=== PATIENT | male | born 1955 | race Caucasian/White ===

== ENCOUNTER 2018-12-06 12:16 | Inpatient (IN) | payer MEDICARE ==
[2018-12-06] MEDS ORDERED: NS 0.9% 1000 ML** 1,000 ML IV ONE (12:29)
[2018-12-06] MEDS ORDERED: Metoprolol Tartrate IV* 1 MG/ML 5 ML VIAL IV ONE (12:30)
[2018-12-06] MEDS ORDERED: Alteplase* 100 MG VIAL ONE (12:42)
[2018-12-06] MEDS ORDERED: Alteplase* 100 MG VIAL IV ONE ×2 (12:44)
[2018-12-06] MEDS ORDERED: niCARdipine 0.1MG/ML IVPREMIX* 20 MG/200 ML BAG IV ONE (12:44)
--- NOTE | 2018-12-06 12:48 | ED ---
Neurological HPI - HPI Summary HPI Summary: Pt is a 63 y/o M presenting to the ED with a chief complaint of L-sided weakness. The pt reports around 1015 his blood pressure was recorded high, and he went to go to the couch and his L leg turned to jello, he tried to get up multiple times but could not. The pt also reports slight nausea and a bad headache behind his eyes. Pt denies any fever, chills, erythema of eyes, sore throat, CP, SOB, cough, abdominal pain, vomiting, dysuria, hematuria, myalgia, edema, rash, or back pain. Code chani called 12:29. - History of Current Complaint Chief Complaint: EDWeakness Stated Complaint: WEAKNESS Time Seen by Provider: 12/06/18 12:25 Last Known Well Date: 12/06/18 10:00 Hx Obtained From: Patient Onset/Duration: Sudden Onset, Started hours ago, Still Present Timing: Constant Onset Severity: Moderate Current Severity: Moderate Neurological Deficit Location: Generalized Pain Intensity: 0 Pain Scale Used: 0-10 Numeric Character: Pressure, Motor Weakness - L-sided, Impaired Speech Aggravating: Unknown Alleviating: Nothing Associated Signs and Symptoms: Positive: Headache, Dizziness, Numbness - L leg complete "jello". Negative: Fever, Chest Pain, Shortness of Breath TPA Considered: Yes - Allergy/Home Medications Allergies/Adverse Reactions: Allergies Allergy/AdvReac Type Severity Reaction Status Date / Time Tetracyclines Allergy Unknown Verified 12/06/18 12:29 Reaction Details Home Medications: Home Medications Bisoprolol/Hydrochlorothiazide [Ziac 5-6.25 mg-] 1 tab PO DAILY 12/06/18 [ History Confirmed 12/06/18] LORazepam TAB(*) [Ativan 1 MG TAB (*)] 1 mg PO TID PRN 12/06/18 [History Confirmed 12/06/18] Rosuvastatin (NF) [Crestor (NF)] 10 mg PO DAILY 12/06/18 [History Confirmed 01/21] PMH/Surg Hx/FS Hx/Imm Hx Previously Healthy: Yes Cardiovascular History: Reports: Hx Hypercholesterolemia, Hx Hypertension EENT History: Denies: Hx Deafness Infectious Disease History: Unable to Obtain/Confirm Infectious Disease History: Denies: Traveled Outside the [place] in Last 30 Days - Family History Known Family History: Negative: Respiratory Disease - Social History Alcohol Use: Daily Hx Substance Use: No Substance Use Type: Reports: None Hx Tobacco Use: Yes Smoking Status (MU): Former Smoker Review of Systems Negative: Fever, Chills Negative: Erythema Negative: Sore Throat Negative: Chest Pain Negative: Shortness Of Breath, Cough Positive: Nausea. Negative: Abdominal Pain, Vomiting Negative: dysuria, hematuria Positive: Decreased ROM - L leg. Negative: Myalgia, Edema, Other - back pain Negative: Rash Neurological: Other - dizziness Positive: Weakness - L leg, Numbness - L leg All Other Systems Reviewed And Are Negative: Yes Physical Exam - Summary Physical Exam Summary: Constitutional: Well-developed, Well-nourished, Alert. (-) Distressed Skin: Warm, Dry HENT: Normocephalic; Atraumatic Eyes: Conjunctiva normal Neck: Musculoskeletal ROM normal neck. (-) JVD, (-) Stridor, (-) Tracheal deviation Cardio: Rhythm regular, rate normal, Heart sounds normal; Intact distal pulses; The pedal pulses are 2+ and symmetric. Radial pulses are 2+ and symmetric. (-) Murmur Pulmonary/Chest wall: Effort normal. (-) Respiratory distress, (-) Wheezes, (-) Rales Abd: Soft. (-) Tenderness, (-) Distension, (-) Guarding, (-) Rebound Musculoskeletal: (-) Edema Lymph: (-) Cervical adenopathy Neuro: Alert, Oriented x3, Cranial nerves II-XII are grossly intact. (-) Nystagmus, (-) Ataxia by finger to nose testing, (-) Sensory deficit. L leg drifts during exam. Psych: Mood and affect Normal GCS: 15 Triage Information Reviewed: Yes Vital Signs On Initial Exam: Initial Vitals Temp Pulse Resp BP Pulse Ox 98.8 F 56 18 204/102 98 12/06/18 12:17 12/06/18 12:17 12/06/18 12:17 12/06/18 12:17 12/06/18 12:17 Vital Signs Reviewed: Yes Diagnostics - Vital Signs Vital Signs Temp Pulse Resp BP Pulse Ox 12/06/18 12:17 98.8 F 56 18 204/102 98 - Laboratory Result Diagrams: 12/06/18 12:50 12/06/18 12:50 Lab Statement: Any lab studies that have been ordered have been reviewed, and results considered in the medical decision making process. - Radiology Chest x-ray Radiology Interpretation Completed By: Radiologist Summary of Radiographic Findings: No active cardiopulmonary disease is noted. ED physician has reviewed this report. - CT Brain CT CT Interpretation Completed By: Radiologist Summary of CT Findings: There is no evidence of acute intracranial mass or hemorrhage noted. ED physician has reviewed this report. Head CTA CT Interpretation Completed By: Radiologist Summary of CT Findings: Calcific plaque is noted in both internal carotid arteries. No evidence of carotid artery dissection is noted. Intracranial circulation is grossly unremarkable. ED physician has reviewed this report. - EKG 1246 Cardiac Rate: Bradycardia - 54bpm EKG Rhythm: Sinus Bradycardia ST Segment: Normal Ectopy: None Summary of EKG Findings: No STEMI. T-wave inversion V4-V6. NIH Scale - NIH Scale Level of Consciousness: Alert/Keenly Responsive Ask Patient the Month and His/Her Age: Both Correct Ask Pt to Open/Close Eyes and Asthma Educator/Release Non-Paretic Hand: Both Correctly Best Gaze (Only Horizontal Eye Movement): Normal Visual Field Testing: No Visual Loss Facial Paresis-Pt to Smile & Close Eyes or Grimace Symmetry: Minor Paralysis Motor Function - Right Arm: No Drift-Holds 10 Seconds Motor Function - Left Arm: No Drift-Holds 10 Seconds Motor Function - Right Leg: No Drift-Holds 10 Seconds Motor Function - Left Leg: Drifts LT 10 seconds Limb Ataxia-Must be out of Proportion to Weakness Present: Absent Sensory (Use Pinprick to Test Arms/Legs/Trunk/Face): Normal Best Language (Describe Picture, Name Items): No Aphasia Dysarthria (Read Several Words): Slurs Some Words Extinction and Inattention: No Abnormality Total Score: 3 Re-Evaluation - Re-Evaluation 1st re-eval Re-Evaluation Time: 13:40 Change: Improved Comment: Pt states his sx have resolved. His headache has gone away and his L leg has regained full strength. Course/Dx - Course Course Of Treatment: Pt is a 63 y/o M presenting to the ED with a chief complaint of L-sided weakness. The pt reports around 1015 his blood pressure was recorded high, and he went to go to the couch and his L leg turned to jello , he tried to get up multiple times but could not. The pt also reports slight dizziness, nausea, and a bad headache behind his eyes. Pt denies any fever, chills, erythema of eyes, sore throat, CP, SOB, cough, abdominal pain, vomiting , dysuria, hematuria, myalgia, edema, rash, or back pain. Code wilde called 12: 29. Chest x-ray shows no active cardiopulmonary disease. Brain CT shows no acute intracranial mass or hemorrhage. As of 1340, the pt's headache has resolved and L leg has regained full ROM. Head/Neck CTA shows calcific plaque noted in both internal carotid arteries. No evidence of carotid artery dissection is noted. Intracranial circulation is grossly unremarkable. As of 1415, the pt will be admitted to [facility] under Dr. Champagne. - Diagnoses Provider Diagnoses: CVA (cerebral vascular accident), Hypertensive emergency During the Visit The Following Alert/Code Occurred: Code Wilde - Critical Care Time Critical Care Time: 30-74 min - 60 minutes Discharge - Sign-Out/Discharge Documenting (check all that apply): Patient Departure - Discharge Plan Condition: Stable Disposition: ADMITTED TO [facility] - Attestation Statements Document Initiated by Scribe: Yes Documenting Scribe: Sara Cruz Provider For Whom Anandibe is Documenting (Include Credential): Rogerio Dela Cruz MD. Scribe Attestation: Sara Casas, scribed for Rogerio Dela Cruz MD. on 12/06/18 at 1540. Status of Scribe Document: Ready Consult Consult: 1416 - Spoke with Dr. Champagne who will be admitting the pt to [facility].
[2018-12-06] MEDS ORDERED: hydrALAZINE IV* 20 MG/ML VIAL IV SLOW PU ONE (12:49)
[2018-12-06] MEDS ORDERED: hydrALAZINE IV* 20 MG/ML VIAL ONE (12:49)
[2018-12-06 13:05] LABS: ABS Basophils 0 10^3/ul (0-0.2); ABS Eosinophils 0.2 10^3/ul (0-0.6); ABS Lymphocytes 2.3 10^3/ul (1.0-4.8); ABS Monocytes 0.9 10^3/ul (0-0.8); ABS Nucleated RBC 0 10^3/ul; Eosinophil % 2.6 %; Hematocrit 50 % (42-52); Lymphocyte % 30.9 %; Mean Corpuscular HGB Conc 34 g/dl (31-36); Mean Corpuscular Hemoglobin 30 pg (27-31); Mean Corpuscular Volume 88 fL (80-94); Mean Platelet Volume 8.7 fL (7.4-10.4); Nucleated Red Blood Cells % 0.2; Platelet Count 146 10^3/ul (150-450); Red Blood Count 5.61 10^6/ul (4.00-5.40); Red Cell Distribution Width 14 % (10.5-15); White Blood Count 7.3 10^3/ul (3.5-10.8)
[2018-12-06 13:18] LABS: Activated Partial Thrombo Time 32.5 seconds (26.0-36.3); INR 0.89 (0.77-1.02)
[2018-12-06 13:24] LABS: Albumin 4.7 g/dL (3.2-5.2); BUN/Creatinine Ratio 12.8 (8-20); Calcium 9.5 mg/dL (8.6-10.3); EGFR African American 82.2 (>60); EGFR Non-African American 67.9 (>60); Globulin 2.4 g/dL (2-4); HDL Cholesterol 46.4 mg/dL; Potassium 4.1 mmol/L (3.5-5.0); Total Bilirubin 0.8 mg/dL (0.2-1.0); Total Protein 7.1 g/dL (6.4-8.9)
[2018-12-06] MEDS ORDERED: LORazepam INJ* 2 MG/ML 1 ML VIAL IV PUSH ONE (13:28)
[2018-12-06] MEDS ORDERED: LORazepam INJ* 2 MG/ML 1 ML VIAL ONE (13:36)
[2018-12-06] MEDS ORDERED: Iohexol 350* (CONTRAST) 500 ML MDV IV ONE (13:41)
[2018-12-06] MEDS ORDERED: Thiamine IV* 100 MG in NS 0.9% 50 ML* 50 ML IV SCH (14:00)
--- NOTE | 2018-12-06 14:47 | CONS ---
NEUROLOGY CONSULTATION NOTE: DATE OF CONSULT: 12/06/18 CONSULTING PROVIDER: Dr. Rogerio Dela Cruz. REASON FOR CONSULT: Activated code jhaveri for acute stroke assessment. CHIEF COMPLAINT: Left-sided weakness. HISTORY OF PRESENT ILLNESS: Mr. Jarret Nicole is a 63-year-old man with remote history of tobacco abuse, alcohol consumption, hypertension, dyslipidemia , who presented to [facility] via transport by his spouse for left leg weakness, slurred speech, difficulty swallowing, and mild pressure-like head pain. The patient stated that he was in normal state of health at 9:59 a.m. At 10 a.m., the symptoms started suddenly. He stood up and noticed that the left leg was weak. He also noticed that there is loss of sensation on the left side of his lower extremity. This never occurred before. He has a gradual onset headache, pressure- like pain, 2/10 in severity, nonradiating, localized mostly behind the left eye, and not associated with any photo or phonophobia. The patient denied any weakness on the right upper or lower extremities. He denied any visual disturbance. Stroke alert was initiated at 12:30 p.m. The patient had a significantly elevated blood pressure with systolic blood pressure ranging in the 211 mmHg and diastolic of 104 mmHg. His heart rate was in the low range in the 50s. The patient was given hydralazine 10 mg to lower his blood pressure. NIH Stroke Scale was 3 for mild left facial droop, dysarthria, and left lower extremity pronator drift which he was given a 1. A total score of 3. Given the patient's neurological deficits and since the patient was complaining and concerned about his swallowing and speech functions, decision to give tPA was discussed with the patient and his spouse at bedside. I explained specifically the administration of tissue plasminogen activator through the IV to treat stroke. I informed the patient that I suspect he has a stroke which means he has a blockage of the blood flow to part of the brain. The nature and purpose of giving tPA is to dissolve the blockage. The risk of the procedure includes bleeding (6.4%), allergic reaction, coma, and in 3% of patients that receive this drug. The probability of success of the procedure is approximately 30%, increased chance of minimal or no disability from the stroke within 3 months, and/or full recovery. Alternative treatments with oxygen and IV fluids were provided. The possibility of the condition worsening and more permanent damage or even with or without tPA can also occur. The patient and spouse consented to the procedure and the bolus was given at 12:57 p.m. PAST MEDICAL HISTORY: Hypertension; dyslipidemia; alcohol consumption, the patient drinks on average 6 to 7 beers a day, but has days where he does not consume any alcohol. The patient also had diagnosis of status epilepticus 5 years ago after a dental procedure. According to his spouse, the physician had reported that the patient may have had alcohol withdrawal hence developed the seizures. MEDICATIONS: 1. Rosuvastatin 10 mg daily. 2. Lorazepam 1 mg t.i.d. p.r.n. 3. Ziac (bisoprolol and hydrochlorothiazide) 1 tablet by mouth daily. ALLERGIES: TETRACYCLINES. REVIEW OF SYSTEMS: A 14-point review of systems was obtained and otherwise negative as per stated in the HPI. I specifically reviewed the inclusion and exclusion criteria for tPA. The patient has no history of intracranial hemorrhage, recent procedures, any history of brain or spinal cord procedures, or any cardiac surgeries. The patient has never received tPA in the past. There is no history of stroke. PHYSICAL EXAM: Vital Signs: Pulse of 60; respiratory rate of 14; oxygen saturation 96%; blood pressure of 166/95, on nicardipine drip. General: Well- appearing man, in no acute distress. Overweight. Head: Atraumatic, normocephalic. Eyes: Conjunctivae/corneas are clear. Neck is supple and symmetrical with no carotid bruits. Lungs are clear to auscultation bilaterally. Cardiovascular: Regular rate and rhythm with normal S1, S2. Extremities: Normal range of motion with no cyanosis or edema. No hammertoes. Skin: No skin lesions or lacerations. Psych: Affect is broad and normal mood. Neurological Examination: Mental Status: Awake, alert, and oriented to person, place, time, and general circumstances. He does have mild dysarthria. Cranial Nerves: Normal confrontation testing bilaterally. Pupils are mid range and reactive to light. Normal consensual response. He does have widening of the palpebral fissure on the left. Sensation is intact in the face, cheeks, and jaw region bilaterally. He has mild left facial droop. He is able to hear throughout the history taking. Symmetrical palatal elevation. He has normal strength against shoulder resistance. Tongue is symmetrical and midline with no atrophy or fasciculation. Motor Examination: No abnormal movement. He does have slight pronator drift on the left upper extremity. 5/5 strength in the upper and lower extremities all throughout. He did have a drift of the left lower extremity on NIH Stroke testing. Reflexes: Right/left, brachioradialis 1/ 1, biceps 1/1, triceps 1/1, patella 2/2, ankle 1/1, plantar flexor/flexor. Sensation is reduced to light touch on the left lower extremity, otherwise normal sensation to light touch throughout. Coordination: Normal finger-to- nose and rapid alternating movements on the right. Gait was not assessed as the patient was getting ready to receive tPA. ASSESSMENT AND PLAN: 1. Jarret Nicole is a 63-year-old male with history of hypertension, dyslipidemia, former tobacco use, and alcohol use, who presented with sudden- onset left lower extremity weakness, dysarthria, and left facial droop. The patient's NIH Stroke Scale is 3. Due to his symptoms being disabling at this point and he is developing swallowing impairment, we agreed to proceed with IV tPA therapy once his blood pressure is under control. The consent for IV tPA was obtained and reported above. I suspect the patient may have a lacunar stroke involving the right lenticulostriate tract. Other possible causes would be small stroke in the right parietal region. The etiology of the stroke is unclear. The patient is still within the window for transient ischemic attack as well. I do not suspect large vessel occlusion, however we will obtain a CTA of the head and neck during the IV tPA infusion to evaluate for large vessel occlusion. Currently, the patient will need admission to the ICU for post tPA monitoring. Please follow the strict vital signs and neuro checks post tPA. Please do not give the patient any antithrombotic agents for the next [address]. [address] a urinary catheter in the next [address] head in 24 hours or obtain an MRI of the brain at that time (to minimize radiation exposure). No DVT prophylaxis other than SCDs for the next 24 hours. Please consult PT/OT/JAVA LEAD ENGINEER evaluation and treatment. Please obtain a transthoracic echo with bubble study. Please order a CTA head and neck with contrast to evaluate for large vessel occlusion, which I do not suspect in this case. 2. Hypertension. Keep his systolic blood pressure between 140 to less than 180 mmHg. 3. Dyslipidemia. Continue rosuvastatin. 4. History of alcohol abuse. Please start the patient on thiamine 100 mg supplements daily. We talked about alcohol cessation. Please monitor for alcohol withdrawals. 5. Former tobacco use. The patient quit few weeks ago. TIME SPENT: I spent a total of 70 minutes of critical care time of which more than 50% was spent on obtaining history, examining the patient, interpreting CT head imaging, discussing tPA therapy with the patient and his spouse as well as Dr. Dela Cruz, and discussing the patient's overall prognosis. I suspect that the patient will hopefully recover. [id number]/[facility] #: [id number] DONTA
[2018-12-06] MEDS ORDERED: LORazepam TAB(*) 1 MG PO PRN (14:57)
[2018-12-06] MEDS ORDERED: Thiamine TAB* 100 MG TAB PO ONE (15:36)
[2018-12-06] MEDS ORDERED: hydrALAZINE IV* 20 MG/ML VIAL IV SLOW PU PRN (15:37)
[2018-12-06] MEDS ORDERED: Albuterol 2.5 MG/3 ML NEB.SOL* (0.083%) INH PRN (15:37)
[2018-12-06] MEDS ORDERED: LORazepam TAB(*) 1 MG PO SCH (16:00)
--- NOTE | 2018-12-06 17:29 | HP ---
CC: Dr. Jensen; Dr. Campbell Murguia* ADMISSION HISTORY AND PHYSICAL TO INTENSIVE CARE UNIT: DATE OF ADMISSION: 12/06/18 ATTENDING PHYSICIAN: Dr. Elaine Champagne.* (DICTATED BY HODAN MAYORGA NP) PRIMARY CARE PROVIDER: Dr. Jensen in [place]. NEUROLOGIST: Dr. Campbell Murguia. REASON FOR ADMISSION: Code wilde stroke assessment. HISTORY OF PRESENT ILLNESS: This is a very pleasant 63-year-old male patient who presented to the emergency department with a complaint of left leg weakness and slurred speech and some asymmetry of the face, also endorsed some difficulty swallowing and headache pressure behind the eyes. The patient states that he noticed when he was trying to ambulate that his left leg felt weak. He also had some loss of sensation on the affected side. The patient states that he also has had progressive headache since this morning and endorsed with my examination, although this is different from his initial admitting symptoms, that he is experiencing some blurry vision at this time. The patient was called in for cain wilde. He was seen by Dr. Murguia in evaluation along with Dr. Dela Cruz from the ER. He did have some significant hypertension with systolics over 200 and diastolics over 100. Heart rate was bradycardic at that time. His blood pressure was controlled. His NIH score was 3. Due to his ongoing progressive symptoms and his elevated NIH score, he was considered a candidate for TPA. He did receive his TPA bolus at 12:57 p.m. His symptoms have now subsequently resolved. We are admitting the patient to ICU for close monitoring, following TPA administration. PAST MEDICAL HISTORY: Significant for hypertension, hyperlipidemia, seizure disorder approximately 5 years ago, generalized anxiety disorder. MEDICATIONS: His home medications include: 1. Crestor 10 mg daily. 2. Ativan 1 mg 3 times a day as needed for anxiety. 3. Ziac 1 tablet p.o. daily. ALLERGIES: The patient states he is allergic to TETRACYCLINES. FAMILY HISTORY: He states both parents with cardiac disease, several male members of his family including brothers and uncles all with lung conditions and lung cancer, and also an uncle with stroke. His emergency contact and healthcare proxy is is , who is currently at the bedside. SOCIAL HISTORY: Significant for daily alcohol consumption, also tobacco use. The patient states he started smoking when he was aged 16. He has quit several times over the years and has most recently quit approximately 1 month ago. REVIEW OF SYSTEMS: A 10-point review systems is negative except as noted in HPI above. PHYSICAL EXAMINATION GENERAL: The patient is alert, somewhat tremulous, in a mild amount of distress. VITAL SIGNS: Currently, blood pressure 146/84, heart rate 62, regular sinus rhythm. O2 saturation 96% on room air with a respiratory rate of 15 to 21. Temperature is 98.8. HEENT: The patient is atraumatic and normocephalic. PERRLA. He has nonicteric sclera. His extraocular movements are intact. He does have a significant amount of erythema and flushing to the face, appears to be rosacea in nature. His oral mucosa is moist. Tongue is midline. NECK: Supple, nontender, no JVD noted. No carotid bruits auscultated. LUNGS: Clear bilaterally at the apices, greatly diminished throughout the bases. He does have an expiratory wheeze on the lower left. CARDIOVASCULAR: S1 and S2 present. No murmurs, gallops, or rubs are noted. Rate and rhythm are currently regular. He has regular sinus rhythm on telemetry with no ectopy and no ST segment changes. ABDOMEN: Soft, nontender, nondistended. Positive bowel sounds in all 4 quadrants. His abdomen is moderately obese. There was no organomegaly noted. GENITOURINARY: Deferred. MUSCULOSKELETAL: There is no clubbing, no cyanosis, no edema. He has +2 distal pulses palpable. He currently has no weakness. His gross motor and sensation are intact. NEUROLOGIC: No further gross focality is noted. PSYCHIATRIC: He is cooperative and appropriate, although very nervous. DIAGNOSTIC STUDIES/LAB DATA: WBCs 7.3, RBCs 5.61, hemoglobin 17, hematocrit 50 , platelets 146. Sodium 141, potassium 4.1, chloride 105, CO2 29. BUN 14, creatinine is 1.09, GFR 67.9. Glucose 90, lactic acid 1.5, calcium 9.5. Bilirubin 0.80, AST 21, ALT 35, alk phos 53. Troponin is negative at 0.00. Total protein 7.1, albumin 4.7, globulin 2.4. Triglycerides 238, total cholesterol 152, LDL was 58, HDL of 46.4. INR is 0.89. APTT is 32.5. Imaging: CT of the brain at admission at 1229 today shows no evidence of any intracranial mass or hemorrhage noted. The CTA of head and neck at 1328 today shows calcific plaque noted in both internal carotid arteries with no evidence of carotid artery dissection or stenosis noted. His intracranial circulation is grossly unremarkable. EKG shows sinus bradycardia with no acute ST segment abnormalities. IMPRESSION: This is a 63-year-old male being admitted for cerebrovascular accident to ICU after having TPA administered in the emergency department. DIAGNOSES: 1. Left-sided deficit, rule out cerebrovascular accident. Plan of care at this point is being guided by Dr. Murguia of Neurology. Again, the patient has had CT and CTA of the head and neck already. We are pending an echocardiogram of the heart with bubble study. He will have neuro checks TPA protocol over the next 24 hours. He will remain on telemetry. We will do a repeat imaging in the morning. We will try to obtain an MRI at 11 o'clock tomorrow. He will be monitored for bleeding over the next 24 hours. He will have consultations with Physical Therapy, Occupational Therapy, and a swallow evaluation. Neurology has also requested that the patient not receive a Felder catheter. 2. For his history of hypertension with hypertensive urgency at admission, he has already received p.r.n. hydralazine. At this point, his blood pressure is under better control. We will continue his regular oral medications as well as hydralazine as needed q.6 hours with parameters. For his history of dyslipidemia, he is already on Crestor. His lipid panel looks appropriate and then the patient has been compliant with his therapy at home. 3. For his history of tobacco abuse, the patient states he quit. I do not feel that he needs nicotine replacement at this time. 4. Report of daily alcohol use. The patient may require WAM protocol at this time. We will give him supplements with multivitamin, thiamin, and folic acid and place on WAM protocol. Again, because the patient had a history of seizures in the past, his seizures might have been precipitated by an acute withdrawal event. The rest of the patient's course will be determined by further diagnostics, laboratories, and any other input from other providers as warranted during this admission. TIME SPENT: Approximately 75 minutes interviewing the patient, reviewing the plan of care, and discussing the case with Dr. Murguia of Neurology. This plan of care has been discussed with Dr. Elaine Champagne, the attending on this case and she is in agreement with the plan. HODAN MAYORGA, DELIVERY ROUTE DRIVER [id number]/[facility] #: [id number] [facility]
[2018-12-06 18:04] LABS: TSH (Thyroid Stimulating Horm) 1.03 mcIU/mL (0.34-5.60)
[2018-12-06] MEDS: Acetaminophen TAB* 325 MG PO PRN (18:53)
[2018-12-06] MEDS ORDERED: Ondansetron INJ* 2 MG/ML VIAL IV PRN (19:19)
[2018-12-07 06:03] LABS: ABS Basophils 0 10^3/ul (0-0.2); ABS Eosinophils 0.2 10^3/ul (0-0.6); ABS Lymphocytes 2.1 10^3/ul (1.0-4.8); ABS Monocytes 0.6 10^3/ul (0-0.8); ABS Neutrophils 2.8 10^3/ul (1.5-7.7); ABS Nucleated RBC 0 10^3/ul; Eosinophil % 4.2 %; Hematocrit 46 % (42-52); Hemoglobin 15.7 g/dl (14.0-18.0); Lymphocyte % 35.8 %; Mean Corpuscular HGB Conc 34 g/dl (31-36); Mean Corpuscular Hemoglobin 30 pg (27-31); Mean Corpuscular Volume 88 fL (80-94); Mean Platelet Volume 8.8 fL (7.4-10.4); Nucleated Red Blood Cells % 0.1; Platelet Count 132 10^3/ul (150-450); Red Blood Count 5.21 10^6/ul (4.00-5.40); Red Cell Distribution Width 13 % (10.5-15); White Blood Count 5.8 10^3/ul (3.5-10.8)
[2018-12-07 06:19] LABS: Calcium 8.9 mg/dL (8.6-10.3); EGFR Non-African American 64.5 (>60); Total Bilirubin 1.3 mg/dL (0.2-1.0)
[2018-12-07] MEDS ORDERED: Atorvastatin* 20 MG TAB PO SCH (09:00)
[2018-12-07] MEDS: Bisoprolol TAB* 5 MG PO SCH (09:28)
[2018-12-07] MEDS: Folic Acid TAB* 1 MG PO SCH (09:28)
[2018-12-07] MEDS: Multivitamins/Minerals TAB PO SCH (09:28)
[2018-12-07] MEDS: Thiamine TAB* 100 MG TAB PO SCH (09:28)
[2018-12-07] MEDS: Hydrochlorothiazide TAB* 25 MG PO SCH (09:28)
--- NOTE | 2018-12-07 09:40 | ECHO ---
Patient: MAURA AMES [facility] Rec#: [id number] : 1955 Date: 12/07/2018 Age: 63y Height: 173 cm / 68.1 in Weight: 107 kg / 235.8 lbs Sex: M BSA: 2.2 Room#: ICU 6 Admit Date#: 12/06/2018 Type: Inpatient Referring: Tequila López Reading: Deandre Horton MD [employer]wood Finisher: Marian Aponte RN RDCS Transthoracic Echocardiogram Indication: CVA, S/P tPA BP: 115/75 HR: 50 Rhythm: Bradycardia Findings History: HTN, HLD, ETOH abuse, former smoker Technical Comments: The study is technically limited due to patient body habitus. The study is technically limited due to the patient's smoking history. Completed at 0910. Left Ventricle: The left ventricular chamber size is normal. Global left ventricular wall motion and contractility are within normal limits. There is normal left ventricular systolic function. The estimated ejection fraction is 60-65%. Normal left ventricular diastolic filling is observed. Left Atrium: The left atrial chamber size is normal. Right Ventricle: The right ventricular cavity size is normal. The right ventricular global systolic function is normal. Right Atrium: The right atrium is slightly dilated. The bubble study is negative. A patent foramen ovale is not demonstrated with color Doppler and agitated contrast. Aortic Valve: The aortic valve is trileaflet. The aortic valve leaflets are mildly thickened. There is no evidence of aortic regurgitation. There is no evidence of aortic stenosis. Mitral Valve: There is mitral annular calcification. The mitral valve leaflets are mildly thickened. There is a trace of mitral regurgitation. There is no evidence of mitral stenosis. Tricuspid Valve: The tricuspid valve leaflets are normal. There is trace tricuspid regurgitation. Unable to estimate the right ventricular systolic pressure. There is no tricuspid stenosis. Pulmonic Valve: The pulmonic valve structure is not well visualized. Pericardium: There is no significant pericardial effusion. A pericardial fat pad is visualized. Aorta: The ascending aorta is not well visualized. There is mild dilatation of the aortic arch. There is no dilation of the aortic root. Pulmonary Artery: The main pulmonary artery is not well visualized. Venous: The inferior vena cava is dilated. There is a greater than 50% respiratory change in the inferior vena cava dimension. Contrast: Normal saline was used as contrast for the bubble study. Images 1-3. Summary: There was not any prior study for comparison. Conclusions Global left ventricular wall motion and contractility are within normal limits. There is normal left ventricular systolic function. The estimated ejection fraction is 60-65%. A patent foramen ovale is not demonstrated with color Doppler and agitated contrast. There is no evidence of aortic stenosis. There is a trace of mitral regurgitation. There is trace tricuspid regurgitation. Unable to estimate the right ventricular systolic pressure. There is no significant pericardial effusion. Measurements Name Value Normal Range RVDdMajor (2D) 3.1 cm (2.2 - 4.4) RAd ISD 4CH 5.3 cm (3.4 - 4.9) RA (A4C)W 3.9 cm (2.9 - 4.6) IVSd (2D) 1 cm (0.6 - 1) LVPWd (2D) 1 cm (0.6 - 1) LVIDd (2D) 5 cm (3.6 - 5.4) Aortic Annulus 2.1 cm (1.4 - 2.6) Ao root diameter (2D) 3 cm (2.1 - 3.5) Aortic arch 3.6 cm (1.8 - 3.4) LA dimension (AP) 2D 3.6 cm (2.3 - 3.8) LAd ISD 4CH 5.3 cm (2.9 - 5.3) LA ISD 4CH W 4.5 cm (2.5 - 4.5) Name Value Normal Range LA ESV BP (A/L) index 26.8 ml/m2 - Name Value Normal Range MV E-wave Vmax 1 m/sec - MV deceleration time 229 msec - MV A-wave Vmax 0.84 m/sec - MV E:A ratio 1.2 ratio - LV septal e' Vmax 0.09 m/sec - LV lateral e' Vmax 0.09 m/sec - LV E:e' septal ratio 11.1 ratio - LV E:e' lateral ratio 11.1 ratio - Name Value Normal Range AV Vmax 1.9 m/sec - AV VTI 44.8 cm - AV peak gradient 14 mmHg - AV mean gradient 8 mmHg - LVOT Vmax 1.5 m/sec - LVOT VTI 34.7 cm - LVOT peak gradient 9 mmHg - LVOT mean gradient 4 mmHg - DANNI Vmax 0.77 m/sec - Name Value Normal Range IVC diameter 2.4 cm - Name Value Normal Range PV Vmax 0.86 m/sec -
[2018-12-07] MEDS: Acetaminophen TAB* 325 MG PO PRN ×2 (11:16→19:48)
--- NOTE | 2018-12-07 14:56 | PN ---
Subjective Date of Service: 12/07/18 Length of Stay: 1 Days Neurology is following Mr. Ma for the evaluation and management of left sided weakness. Interval History: He still has occasional, mild-moderate, 7/10 headache that is holocephalic, and mostly in the right but can radiate to the left side of the head. He responds well to acetaminophen. The patient stood up today and felt that the left side is different than the right. He feels more numb and weak on the left leg>arm. he denied any visual disturbance. He denied any CP or SOB. He denied any impairment in his bowel or bladder functions. Review of Systems: as per subject Objective Active Medications: Acetaminophen (Tylenol Tab*) 650 mg PO Q4H PRN PRN Reason: PAIN Last Admin: 12/07/18 11:16 Dose: 650 mg Albuterol (Ventolin 2.5 Mg/3 Ml Neb.Tenisha*) 2.5 mg INH Q4H PRN PRN Reason: SOB/WHEEZING Atorvastatin Calcium (Lipitor*) 20 mg PO DAILY [facility]; Protocol Last Admin: 12/07/18 09:28 Dose: 20 mg Bisoprolol Fumarate (Zebeta Tab*) 5 mg PO DAILY [facility] Last Admin: 12/07/18 09:28 Dose: 5 mg Folic Acid (Folvite Tab*) 1 mg PO DAILY [facility] Last Admin: 12/07/18 09:28 Dose: 1 mg Hydralazine HCl (Apresoline Iv*) 5 mg IV SLOW PU Q6H PRN PRN Reason: SBP>160 or DBP>90 Hydrochlorothiazide (Hydrodiuril Tab*) 6.25 mg PO DAILY [facility] Last Admin: 12/07/18 09:28 Dose: 6.25 mg Multivitamins/Minerals (Theragran/Minerals Tab*) 1 tab PO DAILY [facility] Last Admin: 12/07/18 09:28 Dose: 1 tab Ondansetron HCl (Zofran Inj*) 4 mg IV Q6H PRN PRN Reason: NAUSEA Last Admin: 12/06/18 19:39 Dose: 4 mg Thiamine HCl (Vitamin B-1 Tab*) 100 mg PO DAILY [facility] Last Admin: 12/07/18 09:28 Dose: 100 mg Vital Signs 12/06/18 12/06/18 12/06/18 14:52 14:57 15:00 Temperature Pulse Rate 61 59 Respiratory 16 14 20 Rate Blood Pressure 143/69 126/75 (mmHg) O2 Sat by Pulse 95 98 Oximetry 12/06/18 12/06/18 12/06/18 15:02 15:07 15:12 Temperature Pulse Rate 58 58 59 Respiratory 16 18 20 Rate Blood Pressure 120/72 133/78 132/90 (mmHg) O2 Sat by Pulse 96 95 95 Oximetry 12/06/18 12/06/18 12/06/18 15:17 15:22 15:27 Temperature Pulse Rate 59 59 61 Respiratory 21 21 15 Rate Blood Pressure 137/73 135/74 135/82 (mmHg) O2 Sat by Pulse 92 96 92 Oximetry 12/06/18 12/06/18 12/06/18 15:32 15:37 15:42 Temperature Pulse Rate Respiratory 14 19 19 Rate Blood Pressure 121/82 132/73 139/79 (mmHg) O2 Sat by Pulse Oximetry 12/06/18 12/06/18 12/06/18 15:47 15:52 15:57 Temperature Pulse Rate Respiratory 21 21 15 Rate Blood Pressure 126/85 123/77 129/79 (mmHg) O2 Sat by Pulse Oximetry 12/06/18 12/06/18 12/06/18 16:00 16:02 16:07 Temperature Pulse Rate 56 55 55 Respiratory 15 10 14 Rate Blood Pressure 142/74 101/76 (mmHg) O2 Sat by Pulse 98 96 96 Oximetry 12/06/18 12/06/18 12/06/18 16:12 16:17 16:23 Temperature Pulse Rate 54 55 56 Respiratory 19 13 12 Rate Blood Pressure 136/80 131/65 118/70 (mmHg) O2 Sat by Pulse 96 96 95 Oximetry 12/06/18 12/06/18 12/06/18 16:28 16:59 17:00 Temperature Pulse Rate 54 55 57 Respiratory 20 14 12 Rate Blood Pressure 132/70 134/75 (mmHg) O2 Sat by Pulse 97 95 94 Oximetry 12/06/18 12/06/18 12/06/18 17:29 17:58 18:00 Temperature Pulse Rate 58 57 58 Respiratory 19 15 14 Rate Blood Pressure 139/74 132/76 (mmHg) O2 Sat by Pulse 93 96 95 Oximetry 12/06/18 12/06/18 12/06/18 18:29 18:53 19:00 Temperature 99 F Pulse Rate 57 56 Respiratory 13 18 15 Rate Blood Pressure 129/62 129/63 (mmHg) O2 Sat by Pulse 96 98 Oximetry 12/06/18 12/06/18 12/06/18 19:01 19:15 19:16 Temperature 97.3 F Pulse Rate 54 55 54 Respiratory 15 15 15 Rate Blood Pressure 132/81 143/87 143/87 (mmHg) O2 Sat by Pulse 96 97 96 Oximetry 12/06/18 12/06/18 12/06/18 19:30 19:40 19:46 Temperature Pulse Rate 55 50 Respiratory 15 13 24 Rate Blood Pressure 155/95 151/92 (mmHg) O2 Sat by Pulse 95 96 Oximetry 12/06/18 12/06/18 12/06/18 20:00 20:01 20:15 Temperature Pulse Rate 51 49 51 Respiratory 16 12 14 Rate Blood Pressure 158/88 154/91 (mmHg) O2 Sat by Pulse 93 94 93 Oximetry 12/06/18 12/06/18 12/06/18 20:30 20:45 21:00 Temperature Pulse Rate 50 51 Respiratory 13 11 15 Rate Blood Pressure 133/86 138/88 (mmHg) O2 Sat by Pulse 93 92 Oximetry 12/06/18 12/06/18 12/06/18 21:01 21:16 21:30 Temperature Pulse Rate 50 50 54 Respiratory 14 18 23 Rate Blood Pressure 144/89 145/74 147/87 (mmHg) O2 Sat by Pulse 94 94 94 Oximetry 12/06/18 12/06/18 12/06/18 21:45 22:00 22:01 Temperature Pulse Rate 51 51 55 Respiratory 12 14 15 Rate Blood Pressure 133/80 128/80 (mmHg) O2 Sat by Pulse 94 93 95 Oximetry 12/06/18 12/06/18 12/06/18 22:17 22:20 22:22 Temperature Pulse Rate 50 50 55 Respiratory 19 14 18 Rate Blood Pressure 154/74 (mmHg) O2 Sat by Pulse 93 94 93 Oximetry 12/06/18 12/06/18 12/06/18 22:30 22:45 23:00 Temperature Pulse Rate 51 51 50 Respiratory 14 12 18 Rate Blood Pressure 136/81 139/79 141/88 (mmHg) O2 Sat by Pulse 93 93 94 Oximetry 12/06/18 12/06/18 12/06/18 23:01 23:15 23:30 Temperature Pulse Rate 49 52 51 Respiratory 12 13 0 Rate Blood Pressure 126/75 120/69 (mmHg) O2 Sat by Pulse 95 92 91 Oximetry 12/06/18 12/07/18 12/07/18 23:45 00:00 00:15 Temperature 96.5 F Pulse Rate 51 50 50 Respiratory 8 12 12 Rate Blood Pressure 127/68 135/76 111/67 (mmHg) O2 Sat by Pulse 92 92 94 Oximetry 12/07/18 12/07/18 12/07/18 00:30 00:46 01:00 Temperature Pulse Rate 51 50 55 Respiratory 9 2 11 Rate Blood Pressure 122/66 97/55 125/73 (mmHg) O2 Sat by Pulse 92 95 94 Oximetry 12/07/18 12/07/18 12/07/18 01:15 01:30 01:45 Temperature Pulse Rate 52 50 49 Respiratory 13 13 12 Rate Blood Pressure 130/76 119/70 115/66 (mmHg) O2 Sat by Pulse 93 92 91 Oximetry 12/07/18 12/07/18 12/07/18 02:00 02:02 02:15 Temperature Pulse Rate 48 47 50 Respiratory 10 13 13 Rate Blood Pressure 112/65 112/70 (mmHg) O2 Sat by Pulse 91 89 90 Oximetry 12/07/18 12/07/18 12/07/18 02:30 02:45 03:00 Temperature Pulse Rate 51 49 49 Respiratory 10 0 11 Rate Blood Pressure 103/69 101/59 124/71 (mmHg) O2 Sat by Pulse 91 92 94 Oximetry 12/07/18 12/07/18 12/07/18 03:01 03:15 03:30 Temperature Pulse Rate 47 47 53 Respiratory 13 11 14 Rate Blood Pressure 122/77 120/73 (mmHg) O2 Sat by Pulse 93 92 89 Oximetry 12/07/18 12/07/18 12/07/18 03:45 04:00 04:01 Temperature 96.7 F Pulse Rate 50 49 48 Respiratory 14 12 13 Rate Blood Pressure 130/82 119/91 (mmHg) O2 Sat by Pulse 93 92 93 Oximetry 12/07/18 12/07/18 12/07/18 04:15 04:30 04:45 Temperature Pulse Rate 50 49 48 Respiratory 12 14 12 Rate Blood Pressure 128/82 131/81 128/82 (mmHg) O2 Sat by Pulse 92 91 92 Oximetry 12/07/18 12/07/18 12/07/18 05:00 05:01 05:15 Temperature Pulse Rate 48 50 48 Respiratory 13 13 12 Rate Blood Pressure 127/72 115/75 (mmHg) O2 Sat by Pulse 92 92 91 Oximetry 12/07/18 12/07/18 12/07/18 05:30 05:45 06:00 Temperature Pulse Rate 52 49 48 Respiratory 15 12 16 Rate Blood Pressure 128/79 121/74 127/84 (mmHg) O2 Sat by Pulse 90 91 93 Oximetry 12/07/18 12/07/18 12/07/18 06:01 06:15 06:31 Temperature Pulse Rate 49 49 48 Respiratory 11 15 13 Rate Blood Pressure 111/75 133/67 (mmHg) O2 Sat by Pulse 91 91 92 Oximetry 12/07/18 12/07/18 12/07/18 06:46 07:00 07:01 Temperature Pulse Rate 51 49 50 Respiratory 16 12 2 Rate Blood Pressure 105/66 102/62 (mmHg) O2 Sat by Pulse 93 92 92 Oximetry 12/07/18 12/07/18 12/07/18 07:15 07:30 07:45 Temperature Pulse Rate 49 50 50 Respiratory 7 16 12 Rate Blood Pressure 126/80 130/81 114/79 (mmHg) O2 Sat by Pulse 93 94 94 Oximetry 12/07/18 12/07/18 12/07/18 08:00 08:15 08:30 Temperature 98.4 F Pulse Rate 50 51 52 Respiratory 14 15 16 Rate Blood Pressure 141/78 124/79 130/81 (mmHg) O2 Sat by Pulse 94 94 93 Oximetry 12/07/18 12/07/18 12/07/18 08:45 09:00 09:15 Temperature Pulse Rate 51 50 53 Respiratory 12 11 19 Rate Blood Pressure 136/88 129/87 148/93 (mmHg) O2 Sat by Pulse 92 93 93 Oximetry 12/07/18 12/07/18 12/07/18 09:30 10:00 10:02 Temperature Pulse Rate 53 52 50 Respiratory 10 18 10 Rate Blood Pressure 125/84 138/87 (mmHg) O2 Sat by Pulse 92 94 95 Oximetry 12/07/18 12/07/18 12/07/18 10:15 10:31 10:46 Temperature Pulse Rate 54 54 52 Respiratory 12 12 18 Rate Blood Pressure 115/80 132/91 142/79 (mmHg) O2 Sat by Pulse 91 91 93 Oximetry 12/07/18 12/07/18 12/07/18 11:00 11:02 11:19 Temperature Pulse Rate 53 60 50 Respiratory 14 13 18 Rate Blood Pressure 120/70 124/91 (mmHg) O2 Sat by Pulse 92 93 94 Oximetry 12/07/18 12/07/18 12/07/18 11:40 12:00 12:01 Temperature 97.8 F Pulse Rate 53 Respiratory 13 13 Rate Blood Pressure 161/93 (mmHg) O2 Sat by Pulse 93 Oximetry 12/07/18 12/07/18 12/07/18 13:00 13:01 14:00 Temperature Pulse Rate 46 48 49 Respiratory 14 13 10 Rate Blood Pressure 144/79 (mmHg) O2 Sat by Pulse 90 93 92 Oximetry Intake and Output Last 24 Hours 12/05/18 12/06/18 12/07/18 12/08/18 06:59 06:59 06:59 06:59 Intake Total 1501 570 Output Total 825 425 Balance 676 145 Weight 236 lb 15.951 oz Intake: IV Fluids 1101 Oral 400 570 Output: Urine 825 425 Other: # Bowel Movements 1 Estimated Stool Amount Large Oxygen Devices in Use Now: None Neurology Exam: General: Well nourished, well developed, and in no acute distress HEENT: Normocephelic/atraumatic, sclera anicteric, mucous membranes moist Neck: Supple Chest: Clear to auscultation bilaterally Cardiovascular: Regular rate and rhythm without murmurs, rubs, gallops Neurological Findings: NIHSS 1 today for left facial droop. Awake, alert, and oriented to person, place, and time. Speech: fluent without dysarthric, repetition intact Cranial Nerve: PERRL, EOM intact, VFF, no nystagmus, mild facial droop on the left. Motor: s/s throughout, proximal and distal extremities x4 tone/bulk normal except for reduced rapid alternative movement and mild pronator drift on the left. Sensation: intact to LT/PP bilaterally upper and lower extremities Deep Tendon Reflex: 2+ symmetric in the upper/lower extremities, Babinski - down going Finger to nose, rapid alternating movements intact without tremor, no dysdiadochokinesia Gait: intact with good arm swing and stride Result Diagrams: 12/07/18 05:59 12/07/18 05:59 Microbiology and Other Data: Microbiology 03/04/19 19:49 Nasal Screen MRSA (PCR) - Final Nasal Mrsa Not Detected Diagnostic Imaging: TTE completed today 12/07/2018: EF 60-65% with no PFO. Assessment/Plan 1. Acute left hemiparesis and paresthesia associated with headache- suspect a lenticulostriate or right RIVERA vascular territory ischemic infarction. He is s/p IV tPA. Current NIHSS is 1. Pending MRI brain without contrast to be done at 24 hour post tPA. Pending study. If MRI is negative for hemorrhage, then transfer out of the ICU, and start aspirin 81 mg daily. Continue high intensity statin therapy. Please consult PT/OT/RN PACU for an evaluation and treatment Ordered B12 level 2. Hx of hypertension- maintain normotensive at this point. 3. Dyslipidemia- high intensity statin therapy 4. hx of alcohol dependency- does not seem to be in withdrawal. continue thiamine supplements. Time spent: 25 minutes of which > 50% spent on obtaining history, examining the patient, education and counseling, and discussing the treatment plan as mentioned above.
--- NOTE | 2018-12-07 19:10 | PN ---
Date of Service: 12/07/18 - transfer note Critical Care Services: 63 M being managed in the ICU s/p tPA for CVA yesterday No overnight events No complains of chest pain, headache, or other complains Vital Signs: Temp Pulse Resp BP SpO2 FiO2 97.8 F 52 16 152/83 94 12/07/18 15:58 12/07/18 15:01 12/07/18 15:01 12/07/18 15:01 12/07/18 15:01 Physical Exam: Gen:NAD HEENT:NCAT, PERRLA, neck supple, no thyromegaly Lungs:AEBL Cardiac: +S1S2, RRR Abdomen:obese, SNTND, +BS Extremities:no cyanosis, no edema Neuro:AAOX3, non focal Fluid Balance (Past 24 Hours): I= O= Net Intake & Output 12/05/18 12/06/18 12/07/18 12/08/18 06:59 06:59 06:59 06:59 Intake Total 1501 570 Output Total 825 425 Balance 676 145 Weight 236 lb 15.951 oz 236 lb 15.951 oz Intake: IV Fluids 1101 Oral 400 570 Output: Urine 825 425 Other: # Bowel Movements 1 Estimated Stool Amount Large ADLs: Meal Record Start: 12/06/18 15: 23 Freq: 09,13,18 Status: Active Protocol: Created 12/06/18 15:23 System (Rec: 12/06/18 15:23 System [id number]) Document 12/07/18 09:00 [id number] (Rec: 12/07/18 11:21 [id number] ICU-C15) Document 12/07/18 13:00 [id number] (Rec: 12/07/18 14:34 [id number] ICU-C15) Intake and Output Start: 12/06/18 12: 29 Freq: Status: Cancelled Protocol: Created 12/06/18 12:29 System (Rec: 12/06/18 12:29 System [id number]) Intake and Output Start: 12/06/18 12: 44 Freq: 06,14,2200 Status: Complete Protocol: Created 12/06/18 12:45 [id number] (Rec: 12/06/18 12:45 [id number]) Document 12/06/18 13:40 [id number] (Rec: 12/06/18 13:41 [id number]) Document 12/06/18 14:19 [id number] (Rec: 12/06/18 14:19 [id number] [id number]) Document 12/06/18 21:08 [id number] (Rec: 12/06/18 21:08 [id number] ICU-C15) Document 12/06/18 22:00 [id number] (Rec: 12/06/18 22:21 [id number] ICU-C15) Document 12/07/18 11:19 [id number] (Rec: 12/07/18 11:19 [id number] ICU-C15) Intake and Output Start: 12/06/18 15: 23 Freq: Q4HR Status: Active Protocol: Created 12/06/18 15:23 System (Rec: 12/06/18 15:23 System [id number]) Document 12/07/18 00:00 [id number] (Rec: 12/07/18 02:10 [id number] ICU-C15) Document 12/07/18 04:00 [id number] (Rec: 12/07/18 05:34 [id number] ICU-C15) Document 12/07/18 08:00 [id number] (Rec: 12/07/18 09:40 [id number] ICU-C15) Document 12/07/18 12:00 [id number] (Rec: 12/07/18 14:33 [id number] ICU-C15) Labs: Laboratory Results - last 24 hr 12/06/18 12/06/18 12/07/18 12:50 12:50 05:59 WBC 5.8 RBC 5.21 Hgb 15.7 Hct 46 MCV 88 MCH 30 MCHC 34 RDW 13 Plt Count 132 L MPV 8.8 Neut % (Auto) 48.8 Lymph % (Auto) 35.8 [place] % (Auto) 10.5 Eos % (Auto) 4.2 Baso % (Auto) 0.7 Absolute Neuts (auto) 2.8 Absolute Lymphs (auto) 2.1 Absolute Monos (auto) 0.6 Absolute Eos (auto) 0.2 Absolute Basos (auto) 0 Absolute Nucleated RBC 0 Nucleated RBC % 0.1 Sodium 141 Potassium 4.1 Chloride 105 Carbon Dioxide 29 Anion Gap 7 BUN 14 Creatinine 1.09 Est GFR ( Amer) 82.2 Est GFR (Non-Af Amer) 67.9 BUN/Creatinine Ratio 12.8 Glucose 90 Hemoglobin A1c 5.5 Calcium 9.5 Total Bilirubin 0.80 AST 21 ALT 35 Alkaline Phosphatase 53 Troponin I 0.00 Total Protein 7.1 Albumin 4.7 Globulin 2.4 Albumin/Globulin Ratio 2.0 Triglycerides 238 Cholesterol 152 LDL Cholesterol 58 HDL Cholesterol 46.4 Vitamin B12 237 TSH 1.03 12/07/18 05:59 WBC RBC Hgb Hct MCV MCH MCHC RDW Plt Count MPV Neut % (Auto) Lymph % (Auto) [place] % (Auto) Eos % (Auto) Baso % (Auto) Absolute Neuts (auto) Absolute Lymphs (auto) Absolute Monos (auto) Absolute Eos (auto) Absolute Basos (auto) Absolute Nucleated RBC Nucleated RBC % Sodium 140 Potassium 4.0 Chloride 106 Carbon Dioxide 27 Anion Gap 7 BUN 16 Creatinine 1.14 Est GFR ( Amer) 78.0 Est GFR (Non-Af Amer) 64.5 BUN/Creatinine Ratio 14.0 Glucose 106 H Hemoglobin A1c Calcium 8.9 Total Bilirubin 1.30 H AST 17 ALT 27 Alkaline Phosphatase 49 Troponin I Total Protein 6.0 L Albumin 4.0 Globulin 2.0 Albumin/Globulin Ratio 2.0 Triglycerides Cholesterol LDL Cholesterol HDL Cholesterol Vitamin B12 Cancelled TSH Studies: brain mri 12/07- no IC lesion Nutrition: heart healthy diet Impression: Acute left hemipareisis/paresthesia with acute headache due to ischemia CVA s/p tpa 12/06 HTN obesity HLD HX/O alcohol dependency Plan: Acute left hemipareisis/paresthesia with acute headache -like due to ischemia CVA in lenticulostriate vs right RIVERA vascular territory s/ p tpa 12/06 - follow up Brain MRI post tpa 24 Hours is negative - will start ASA 81 MG starting in AM - on statin - PT/OT/ST consult placed HTN - on bisoprolol obesity -dietary and lifestyle modifications HLD - on lipitor HX/O alcohol dependency - no suggestion of withdrawal - on MVI, Folic acid, thiamine Critical Care Time: 35 minutes DVT SCD Dispo: stable to transfer to [facility]
[2018-12-07] MEDS ORDERED: LORazepam TAB(*) 1 MG PO PRN (19:59)
[2018-12-08 04:41] LABS: ABS Basophils 0.1 10^3/ul (0-0.2); ABS Eosinophils 0.2 10^3/ul (0-0.6); ABS Lymphocytes 2.2 10^3/ul (1.0-4.8); ABS Monocytes 0.6 10^3/ul (0-0.8); ABS Neutrophils 2.4 10^3/ul (1.5-7.7); ABS Nucleated RBC 0 10^3/ul; Eosinophil % 2.9 %; Hematocrit 48 % (42-52); Hemoglobin 16.2 g/dl (14.0-18.0); Lymphocyte % 40.9 %; Mean Corpuscular HGB Conc 34 g/dl (31-36); Mean Corpuscular Hemoglobin 30 pg (27-31); Mean Corpuscular Volume 88 fL (80-94); Mean Platelet Volume 8.8 fL (7.4-10.4); Nucleated Red Blood Cells % 0.2; Platelet Count 137 10^3/ul (150-450); Red Blood Count 5.42 10^6/ul (4.00-5.40); Red Cell Distribution Width 13 % (10.5-15); White Blood Count 5.5 10^3/ul (3.5-10.8)
[2018-12-08 04:56] LABS: Albumin 4.1 g/dL (3.2-5.2); BUN/Creatinine Ratio 16.5 (8-20); Calcium 9.2 mg/dL (8.6-10.3); EGFR African American 87.7 (>60); EGFR Non-African American 72.5 (>60); Globulin 2.1 g/dL (2-4); Potassium 3.7 mmol/L (3.5-5.0); Total Bilirubin 1.2 mg/dL (0.2-1.0); Total Protein 6.2 g/dL (6.4-8.9)
[2018-12-08] MEDS: Hydrochlorothiazide TAB* 25 MG PO SCH (08:15)
[2018-12-08] MEDS: Multivitamins/Minerals TAB PO SCH (08:15)
[2018-12-08] MEDS: Thiamine TAB* 100 MG TAB PO SCH (08:15)
[2018-12-08] MEDS: Bisoprolol TAB* 5 MG PO SCH (08:15)
[2018-12-08] MEDS: Folic Acid TAB* 1 MG PO SCH (08:15)
[2018-12-08] MEDS ORDERED: Atorvastatin* 40 MG TAB PO SCH (09:00)
[2018-12-08] MEDS ORDERED: Aspirin EC TAB* 81 MG TAB.EC PO SCH (09:00)
[2018-12-08] MEDS ORDERED: Cyanocobalamin INJ * 1,000 MCG/ML VIAL 1 ML VIAL IM ONE (11:05)
--- NOTE | 2018-12-08 11:13 | PN ---
Subjective Date of Service: 12/08/18 Length of Stay: 2 Days Neurology is following for paresthesia and weakness that have resolved. Interval History: The patient feels that his left leg is not "buckling" and he does not have the left facial droop, left arm or leg weakness. His main problems today are combination of left hip and neck pain. These are chronic problems. 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 He denied any impairment in his bowel or bladder functions. He does not want to be worked up for his neck problems but then agreed to undergo further testing. He denied any double or blurry vision. He stated that over the years, he has had multiple head and neck injuries. Review of Systems: Denied CP, SOB, or palpitations. Objective Active Medications: Acetaminophen (Tylenol Tab*) 650 mg PO Q4H PRN PRN Reason: PAIN Last Admin: 12/07/18 19:48 Dose: 650 mg Albuterol (Ventolin 2.5 Mg/3 Ml Neb.Tenisha*) 2.5 mg INH Q4H PRN PRN Reason: SOB/WHEEZING Aspirin (Aspirin Ec Tab*) 81 mg PO DAILY [facility] Last Admin: 12/08/18 08:15 Dose: 81 mg Atorvastatin Calcium (Lipitor*) 40 mg PO DAILY [facility]; Protocol Last Admin: 12/08/18 08:15 Dose: 40 mg Bisoprolol Fumarate (Zebeta Tab*) 5 mg PO DAILY [facility] Last Admin: 12/08/18 08:15 Dose: 5 mg Cyanocobalamin (Vitamin B12 Inj *) 1,000 mcg IM ONCE ONE Stop: 12/08/18 11:06 Cyanocobalamin (Vitamin B12 Tab*) 1,000 mcg PO DAILY [facility] Folic Acid (Folvite Tab*) 1 mg PO DAILY [facility] Last Admin: 12/08/18 08:15 Dose: 1 mg Hydralazine HCl (Apresoline Iv*) 5 mg IV SLOW PU Q6H PRN PRN Reason: SBP>160 or DBP>90 Hydrochlorothiazide (Hydrodiuril Tab*) 6.25 mg PO DAILY [facility] Last Admin: 12/08/18 08:15 Dose: 6.25 mg Lorazepam (Ativan Tab(*)) 1 mg PO Q8HR PRN PRN Reason: ANXIETY Multivitamins/Minerals (Theragran/Minerals Tab*) 1 tab PO DAILY [facility] Last Admin: 12/08/18 08:15 Dose: 1 tab Ondansetron HCl (Zofran Inj*) 4 mg IV Q6H PRN PRN Reason: NAUSEA Last Admin: 12/06/18 19:39 Dose: 4 mg Thiamine HCl (Vitamin B-1 Tab*) 100 mg PO DAILY [facility] Last Admin: 12/08/18 08:15 Dose: 100 mg Vital Signs 12/08/18 12/08/18 12/08/18 09:13 10:00 10:01 Temperature Pulse Rate 47 49 Respiratory 6 15 11 Rate Blood Pressure 155/86 (mmHg) O2 Sat by Pulse 94 95 Oximetry Intake and Output Last 24 Hours 12/06/18 12/07/18 12/08/18 12/09/18 06:59 06:59 06:59 06:59 Intake Total 1501 570 Output Total 825 625 Balance 676 -55 Weight 236 lb 15.951 oz 236 lb 15.951 oz Intake: IV Fluids 1101 Oral 400 570 Output: Urine 825 625 Other: # Bowel Movements 0 Estimated Stool Amount Large Oxygen Devices in Use Now: None Neurology Exam: General: Well nourished, well developed, and in no acute distress HEENT: Normocephelic/atraumatic, sclera anicteric, mucous membranes moist. Spurling's sign negative. Tenderness to palpation of the neck bilaterally. Neck: Supple Chest: Clear to auscultation bilaterally Cardiovascular: Regular rate and rhythm without murmurs, rubs, gallops Extremities: No clubbing, cyanosis, or edema. Tenderness and pain around the left hip region that improved with walking. Neurological Findings: Awake, alert, and oriented to person, place, and time. Speech: fluent without dysarthric, repetition intact Cranial Nerve: PERRL, EOM intact. Improvement of the left facial droop. Motor: s/s throughout, proximal and distal extremities x4 tone/bulk normal Sensation: intact to LT/PP bilaterally upper and lower extremities Deep Tendon Reflex: 2+ on the right upper and right knee, 1+ on the left biceps , triceps, and brachioradialis, 3+ on the left knee. Absent at the ankles bilaterally. Babinski - down going Finger to nose, rapid alternating movements intact without tremor, no dysdiadochokinesia Gait: intact with good arm swing and stride Result Diagrams: 12/08/18 04:30 12/08/18 04:30 Microbiology and Other Data: Microbiology 12/06/18 19:49 Nasal Screen MRSA (PCR) - Final Nasal Mrsa Not Detected Diagnostic Imaging: TTE completed today 12/07/2018: EF 60-65% with no PFO. Assessment/Plan 1. Acute left hemiparesis and paresthesia associated with headache- suspect a TIA to the right MCA vascular territory region. His symptoms that he had on initial presentation have resolved. He now has chronic pain in the neck and left hip region.suspect a lenticulostriate or right RIVERA vascular territory ischemic infarction. He is s/p IV tPA. Current NIHSS is 1. Recommendation: Aspirin 81 mg daily Continue high intensity statin therapy. Please consult PT/OT/OTORHINOLARYNGOLOGIST for an evaluation and treatment 2. Chronic neck pain with some evidence of myelopathy- Evaluate for cervical spondylosis. Ordered an MRI of the c spine with out contrast to assess the degree of spinal canal stenosis. He may eventually need outpatient PT, neck exercises, and a follow-up with neurosurgery as an outpatient. 3. Hx of hypertension- maintain normotensive at this point. 4. Low normal vitamin B12- started on oral cyanocobalamin supplementation of 1, 000 mcg daily. 5. Dyslipidemia- continue high intensity statin therapy 6. Hx of alcohol dependency- does not seem to be in withdrawal. Continue thiamine supplementation. 7. Suspect mild peripheral neuropathy which could be related to lower range B12 or due to alcohol polyneuropathy- recommend alcohol cessation and continue B12 supplementation. If the MRI C spine is unremarkable, then he would most likely be discharged home with services. Time spent: 25 minutes of which > 50% spent on obtaining history, examining the patient, education and counseling, and discussing the treatment plan as mentioned above. ADDENDUM: MRI C spine was reviewed. The patient has no evidence of severe spinal stenosis but has mild multilevel degenerative disc disease worse at C6-7. No need for an outpatient neurosurgical evaluation. Recommend outpatient PT for neck exercises and balance training. Follow-up with me as an outpatient in 4 weeks. We will arrange for follow-up. I will sign off.
[2018-12-08] MEDS ORDERED: Cyanocobalamin TAB* 500 MCG PO SCH (12:00)
[2018-12-08 16:08] VITALS: BP 148/87
--- NOTE | 2018-12-10 00:23 | DS ---
CC: Dr. Jensen; Dr. Campbell Murguia; Dr. Thuan Orellana* DISCHARGE SUMMARY: DATE OF ADMISSION: 12/06/18 DATE OF DISCHARGE: 12/08/18 PRIMARY CARE PROVIDER: Dr. Jensen in [place]. NEUROLOGIST: Dr. Campbell Murguia. MY ATTENDING PHYSICIAN: Dr. Thuan Orellana* (dictated by Hodan Webb NP). HOSPITAL COURSE: Please refer to admitting H and P from the 12/08/18 and also emergency department notes, but in short, this patient was admitted through the emergency department for stroke-like symptoms. He endorsed left arm weakness, left arm inability to pt escort and left-sided facial droop. Reported that his legs were giving out on him. A code jhaveri was called. In the emergency department, his NIH score was 3. He did receive tPA. After being evaluated by Dr. Murguia, please refer to Dr. Murguia's notes regarding the code jhaveri and those interventions. The patient was admitted to the ICU for close evaluation after having tPA. He did have a CTA, which did not show any large vessel occlusion. Followup MRI also did not show any acute infarction. Per Dr. Rodney's note, it seems that his symptoms were consistent with a lenticulostriate or a right MCA vascular territory ischemic infarction. His symptoms completely resolved. He did have a persistent headache, which he was attributing to chronic neck pain; however, given his neurologic symptoms, we did do imaging of the cervical spine. It did not show any acute stenosis to account for his persistent headache and some dizziness. The patient also endorsed that he did have vertigo over the years and was attributing some of his symptoms to his preexisting vertigo. In any case, it was cleared by Dr. Murguia on the 12/08/18, he recommended aspirin 81 mg daily and high intensity statin therapy. It should be noted that the patient was on statins prior to arrival. We also recommend close blood pressure control. He did have hypertensive urgency also at admission. Blood pressure was stable at the time of discharge and remained normotensive. DISCHARGE DIAGNOSES: 1. Acute left hemiparesis and paresthesia, suspect transient ischemic attack to the right MCA vascular territory region. 2. Chronic neck pain with suspected myelopathy. MRI with no significant stenosis. 3. History of hypertension with hypertensive urgency, now stable. 4. History of EtOH use. He is maintained on B12 vitamin therapy and folic acid. 5. History of hyperlipidemia, on statin therapy. 6. Mild peripheral neuropathy to the lower extremities, currently at baseline. DISCHARGE MEDICATIONS: Include: 1. Ativan 1 mg p.o. 3 times a day as needed. 2. Ziac 5/6.25 mg 1 tablet p.o. daily. 3. Multivitamin 1 tablet daily. 4. Folic acid 1 mg p.o. daily. 5. Vitamin B12 1000 mcg p.o. daily. 6. Atorvastatin 40 mg daily. 7. Aspirin 81 mg daily. REVIEW OF SYSTEMS ON THE DAY OF DISCHARGE: [id number] review of systems is negative except as noted in the HPI above. PHYSICAL EXAMINATION: The patient is alert, in no acute distress. Vital Signs : Blood pressure 148/87; heart rate ranging from 49 to 52, sinus minerva on telemetry; respiratory rate 16; O2 saturation 94% on room air; temperature 97.6. HEENT: The patient is atraumatic, normocephalic. PERRLA with nonicteric sclerae. Skin of the cheeks appears to have discoloration, which is likely rosacea. Oral mucosa is moist. Tongue is midline. Neck is supple, nontender. No JVD noted. No carotid bruit auscultated. Cardiovascular: S1, S2 present. Rate is bradycardic. Rhythm is regular. No murmurs, gallops or rubs noted. Lungs are clear bilaterally to auscultation with no wheezing, rhonchi or rales. Abdomen is soft, nontender, nondistended. Moderately obese, positive bowel sounds in all 4 quadrants. No organomegaly noted. is deferred. Musculoskeletal: There is no clubbing, no cyanosis, no edema. He has +2 distal pulses palpable. He has a steady gait. Full range of motion. Gross motor and sensation are intact. Neurologic: He has no acute focal deficits at this time. 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 Strength in the left side is 5/5. On his motor coordination, again steady gait. No facial drooping. No further neurologic deficits noted. Psychiatric: He is cooperative and appropriate. LABORATORY DATA: WBCs 5.5, RBCs 5.42, hemoglobin 16.2, hematocrit 48, platelets 137. Sodium 137, potassium 3.7, chloride 104, CO2 of 27, BUN 17, creatinine 1.03, GFR is 72.5, glucose 102, hemoglobin A1c is 5.5, lactic acid is 1.5, calcium 9.5, bilirubin 0.80, AST 21, ALT 35, alk phos 53, troponin was negative at 0.00, total protein 7.1, albumin 4.7, globulin 2.4, triglycerides 238, cholesterol total 152, LDL 58, HDL 46.4, vitamin B12 of 237, TSH was 1.03. IMAGING: Imaging of the brain MRI dated 12/07/18, showed no intracranial lesion. C-spine showed multilevel degenerative disk disease with minimal spondylitic ridge noted at C4-C5, C5-C6, and C6-C7. No spinal stenosis is noted. Chest x-ray, dated 12/06/18, showed no active cardiopulmonary disease. DISPOSITION: The patient was discharged to home in the care of his in stable condition. The patient stated his understanding of his discharge instructions, medications, and followups. FOLLOWUP: This patient was instructed to follow up with Dr. Jensen, his primary care provider in the next 4 to 7 days, also with Dr. Campbell Murguia of Neurology within 1 month. Again, the patient was discharged in stable condition. TIME SPENT: Forty-five minutes interfacing with the patient and his , discussing the discharge plan of care, medications, and followups. HODAN WEBB NP [id number]/[facility] #: [id number] UNITED HEALTH SERVICESRoberto
== END 2018-12-08 18:16 | disposition home or self-care (01) | DRG 62 ==
LOC: ED 12:16 → ICU 14:51
PROVIDERS: ADMIT Internal Medicine; ATTEND Internal Medicine
PROC: 3E03317 Introduction of Other Thrombolytic into Peripheral Vein, Percutaneous Approach (ICD-10-PCS; principal; 2018-12-06)
PROC: 5A09357 Assistance with Respiratory Ventilation, Less than 24 Consecutive Hours, Continuous Positive Airway Pressure (ICD-10-PCS; 2018-12-06)
DX: I63.511 Cerebral infarction due to unspecified occlusion or stenosis of right middle cerebral artery (principal); G81.94 Hemiplegia, unspecified affecting left nondominant side; M47.12 Other spondylosis with myelopathy, cervical region; R40.2412 Glasgow coma scale score 13-15, at arrival to emergency department; R29.703 NIHSS score 3; I10 Essential (primary) hypertension; E78.5 Hyperlipidemia, unspecified; R47.81 Slurred speech; R13.10 Dysphagia, unspecified; R29.810 Facial weakness; R47.1 Dysarthria and anarthria; E66.9 Obesity, unspecified; R20.2 Paresthesia of skin; G89.29 Other chronic pain; G62.9 Polyneuropathy, unspecified; G40.909 Epilepsy, unspecified, not intractable, without status epilepticus; I16.0 Hypertensive urgency; F41.1 Generalized anxiety disorder; Z87.891 Personal history of nicotine dependence; Z88.1 Allergy status to other antibiotic agents; Z72.89 Other problems related to lifestyle; Z79.82 Long term (current) use of aspirin; Z82.49 Family history of ischemic heart disease and other diseases of the circulatory system; Z82.3 Family history of stroke; Z68.36 Body mass index [BMI] 36.0-36.9, adult; Z80.1 Family history of malignant neoplasm of trachea, bronchus and lung
CPT/HCPCS: 36415; 70450; 70496; 70498; 70551; 71045; 72141; 80053; 80061; 82607; 83036; 83605; 84443; 84484; 85025; 85610; 85730; 87641; 93005; 93306; 94660; 99285; A9270-GY; G8987-GO-CI; G8988-GO-CI; G8989-GO-CI; J0360; J2060; J2405; J2997; J3420; J3490; Q9967